=== PATIENT | male | born 1975 | race Caucasian/White ===

== ENCOUNTER → 2024-09-03 | Outpatient (CLI) | payer OTHER ==
--- NOTE | 2024-09-03 14:30 | CT ---
EXAMINATION TYPE: CT abdomen pelvis w con DATE OF EXAM: 09/03/2024 2:14 PM COMPARISON: None CLINICAL INDICATION: Male, 48 years old with history of K40.90 UNIL INGUINAL HERNIA; inguinal hernia TECHNIQUE: Axial CT abdomen pelvis w con;Sagittal and coronal reformats were created on a separate w orkstation. Contrast used:100ml mL of Isovue 300 with IV Contrast, (none if empty) Oral contrast used: with Oral Contrast (none if empty) CT DLP: 2677.0 mGycm, Automated exposure control for dose reduction was used. FINDINGS: LOWER CHEST: Unremarkable ABDOMEN LIVER: Unremarkable GALLBLADDER AND BILE DUCTS: Unremarkable. PANCREAS: Unremarkable. SPLEEN: Unremarkable. ADRENAL GLANDS: Unremarkable. KIDNEYS AND URETERS: No evidence of hydronephrosis or obstructing renal calculus. The ureters are unr emarkable. PELVIS BLADDER: No evidence for wall thickening or mass given limitations of exam. REPRODUCTIVE: Prostate is enlarged in size measuring 5.3 cm in transverse dimension. Moderate right h ydrocele. ABDOMEN & PELVIS STOMACH AND BOWEL: No evidence of bowel obstruction. Majority of the colon and portions of small tavon l in the right scrotum. PERITONEUM/RETROPERITONEUM: No evidence of pneumoperitoneum or free fluid. VASCULATURE: No evidence of aortic aneurysm. MUSCULOSKELETAL: No acute osseous abnormalities LYMPH NODES: No gross evidence for lymphadenopathy. SOFT TISSUE/ABDOMINAL WALL: Fat-containing umbilical hernia measuring 17 mm of the neck. Large right inguinal hernia containing loops of small and large bowel. No evidence for strangulation. Hernia sac measuring up to 19 x 17 mm in the right scrotum. IMPRESSION: 1. Large right inguinal hernia containing colon and small bowel extending down into the right scrotu m. No evidence for strangulation. No obstruction. 2. Small left fat-containing inguinal hernia. 3. Fat-containing umbilical hernia. 4. Prostatomegaly, correlate with serum PSA. [facility], , 09/03/2024 2:27 PM
== END | disposition home or self-care (01) ==
LOC: RADCTMAIN 08-24 15:49
PROVIDERS: ATTEND Surgery
DX: K40.90 Unilateral inguinal hernia, without obstruction or gangrene, not specified as recurrent (principal); K42.9 Umbilical hernia without obstruction or gangrene; N40.0 Benign prostatic hyperplasia without lower urinary tract symptoms
CPT/HCPCS: 74177; Q9967